=== PATIENT | male | born 1995 | race Two or more races ===

== ENCOUNTER 2019-07-22 13:00 | Outpatient (CLI) | payer OTHER ==
[~2019-07-22 13:00] MED LIST: AMOX1TAB12 PO; CONCERTA27 MG/BOTT; GILTUSS TR TAB1 EACH PO; ZYRTEC10 MG PO
== END 2019-07-22 13:11 | disposition home or self-care (01) ==
LOC: LAB 13:00
DX: J11.1 Influenza due to unidentified influenza virus with other respiratory manifestations (principal); J20.0 Acute bronchitis due to Mycoplasma pneumoniae